=== PATIENT | female | born 1985 | race African-American/Black ===

== ENCOUNTER 2020-12-22 11:57 | Emergency (ER) | payer OTHER, SELFPAY ==
--- NOTE | ~2020-12-22 | XR_ITS ---
EXAMINATION: XR CHEST CLINICAL INFORMATION: Cough COMPARISON: None TECHNIQUE: AP portable view of the chest was obtained. FINDINGS: No significant abnormality is noted involving the heart, lungs, mediastinum, bony thorax or soft tissues. XR/XR chest 1V IMPRESSION: No acute disease.
[2020-12-22 12:07] VITALS: BP 150/92; PULSE 74; RESP 18; TEMP 36.9; O2SAT 100; BMI 39.6
--- NOTE | 2020-12-22 12:30 | ED_ITS ---
HPI - URI/Sore Throat General Chief Complaint: Upper Respiratory Symptoms Stated Complaint: lt ear pain Time Seen by Provider: 12/22/20 12:14 Source: patient Mode of arrival: ambulatory Limitations: no limitations History of Present Illness HPI Narrative: 35-year-old female who is recently staying in a custodial presents with severe left ear pain for the last 3 days. States the pain is sharp in her left ear, no discharge. No fevers. Patient has had a cough for the last 3 days and feels congested in her chest, no sore throat. No sinus pain. Patient tested negative for COVID 2 weeks ago. Not vaccinated for COVID. has a past medical history of GERD and asthma. States patient ran out of albuterol inhaler, was using inhaler 4 times a day. Patient states she did go swimming last week. MD elicited complaint: cough and other (left ear pain) Pertinent past history: asthma Onset (ago): day(s) (3) Consistency: constant Severity: moderate Description of mucous: yellow Able to tolerate fluids by mouth: Yes Exacerbating factors: nothing Relieving factors: nothing Associated symptoms: nasal congestion and cough Treatments prior to arrival: none Related Data Previous Rx's Medication Instructions Recorded albuterol sulfate 90 mcg/actuation 2 puff INHALATION Q6H PRN #8.5 g 12/22/20 aerosol inhaler amoxicillin 875 mg-potassium 1 tab PO BID 10 Days #20 tab 12/22/20 clavulanate 125 mg tablet (Augmentin) ofloxacin 0.3 % ear drops 10 drp OTIC (EARS) DAILY 7 Days 12/22/20 #10 ml prednisolone acetate 1 % eye 1 drp OPHTHALMIC (EYE) BID #10 ml 12/22/20 drops,suspension prednisone 20 mg tablet 40 mg PO DAILY 5 Days #10 tab 12/22/20 Allergies Allergy/AdvReac Type Severity Reaction Status Date / Time No Known Allergies Allergy Verified 12/22/20 12:09 Review of Systems Constitutional: Constitutional: Denies chills, Denies fatigue, Denies fever(s) and Denies headache(s) Eyes: Eyes: Denies blurry vision, Denies diplopia and Denies eye pain ENT: Denies ear discharge, Reports otalgia, Denies facial pain, Denies headache(s), Denies hearing loss, Denies hoarseness, Reports post nasal drip, Denies sinus pain, Denies sinus pressure and Denies sore throat Cardiovascular: Cardiovascular: Denies chest pain and Denies dyspnea Respiratory: Respiratory: Reports chest congestion, Reports cough, Denies dyspnea and Reports wheezing Gastrointestinal: Gastrointestinal: Denies abdominal pain, Denies hematochezia, Denies coffee ground emesis, Denies constipation, Denies nausea a nd Denies vomiting Genitourinary: Genitourinary: Reports no additional female genitourinary complaints Musculoskeletal: Musculoskeletal: Denies back pain, Denies myalgias and Denies muscle weakness Integumentary/Breasts: Skin/Breast: Denies erythema and Denies rash Neurologic: Reports system reviewed and no additional complaints, except as documented and Denies headache(s) Endocrine: Endocrine: Denies fatigue Allergic/Immunologic: Allergic/Immunologic: Reports wheezing PMFSH Past Medical History Medical History (Updated 12/22/20 @ 13:24 by LORAINE Hatfield) Asthma Social History Social History Advance Directives: No Advance Directives Information Provided: Yes Patient : No Physical Exam Vital Signs: Vital Signs: Last Vital Signs Temp 98.5 F 12/22/20 12:07 Pulse 70 12/22/20 12:54 Resp 18 12/22/20 12:07 BP 150/92 H 12/22/20 12:07 Pulse Ox 100 12/22/20 12:07 Body Mass Index 39.6 Const: General: cooperative, no acute distress, well developed, alert and awake Nutritional Appearance: well nourished Orientation/consciousness: patient oriented x3 Limitations: no limitations HENMT: Head: Yes normal to inspection, Yes normocephalic and Yes atraumatic Ears: hearing grossly normal bilaterally, Abnormal EAC present erythema on the left, edema on the left and EAC tenderness (left tragal tenderness), no external ear abnormalities, normal mastoids bilaterally and TM abnormal bulging on the left, dull bilateral and erythematous on the left General nose exam: Normal external nose present Face and sinus: Yes sinuses nontender, Yes face symmetric and No edema Mouth: moist mucous membranes Throat: Yes postnasal drainage Eyes: Conjunctivae: conjunctivae normal Pupils: Equal, round and reactive pupils present EOM: EOMs intact bilaterally Neck: Neck: Yes full ROM, Yes no lymphadenopathy and Yes supple Resp: Effort & Inspection: normal respiratory effort and able to speak in complete sentences Auscultation: wheezes throughout and diminished lung sounds diffuse Cardio: Rate: regular rate Rhythm: regular rhythm Heart sounds: S1 normal heart sound present and S2 normal heart sound present GI: Inspection: Yes normal to inspection Palpation (GI): Soft to palpation, nontender, no guarding and not rigid Percussion: Yes normal to percussion Auscultation: normal bowel sounds Skin: General skin exam: no rashes or lesions noted Neuro: General: patient oriented x3, tone normal and moves all extremities Cranial nerves: Yes Equal, round and reactive pupils present Extrem: General: Yes normal to inspection and Yes full ROM Psych: Appearance: grossly normal Affect: normal affect Attitude: cooperative Thought process: Normal thought process present Course Course Course Narrative: 35-year-old female presents with cough, congestion, left ear pain for the last 3 days. On exam, patient has stable vitals, is afebrile, lungs are diminished and diffusely wheezy. Patient's left external auditory canal is edematous and erythematous patient's left TM is bulging and erythematous. Will test for COVID, give albuterol MDI, regressed prednisone, will treat left ear infection as both an otitis externaand acute otitis media Reevaluation(s) Reevaluation #1: Chest x-ray is unremarkable. After albuterol, patient's lungs are now clear, no wheezes. MDM - URI/Sore Throat Lab Data Labs: Lab Results 12/22/20 Range/Units 13:09 COVID-19 ([facility]) Negative (Negative) COVID-19 Clin Com See Note Discharge Plan Discharge Clinical Impression: Otitis media Qualifiers: Otitis media type: other nonsuppurative Chronicity: acute Laterality: left Recurrence: non-recurrent Qualified Code(s): H65.192 - Other acute nonsuppurative otitis media, left ear Otitis externa Qualifiers: Otitis externa type: swimmer's ear Chronicity: acute Laterality: left Qualified Code(s): H60.332 - Swimmer's ear, left ear Asthma exacerbation Qualifiers: Asthma severity: mild Asthma persistence: unspecified Qualified Code(s): J45.901 - Unspecified asthma with (acute) exacerbation Patient Disposition: Home, Self-Care Instructions: Asthma (ED), Otitis Externa (ED), Ear Infection (ED) Additional Instructions: 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 Please use your albuterol inhaler, 2 puffs every 4 hours for your awake. Please take your prednisone, take a dose today, after today taken prednisone in the morning. Please start your antibiotics for your left ear infection and take it twice a day for 10 days. Please use both ear drops in your left ear, remember we discussed that 1 of the Ear Drops is written for your eyes, but use in your years. Your COVID test was negative today. Please return for worsening shortness of breath, fevers, chest pain, or any new or concerning symptoms. Prescriptions: New ofloxacin 0.3 % drops 10 drp otic (ears) DAILY 7 Days Qty: 10 RF: 0 prednisolone acetate 1 % drops,suspension 1 drp ophthalmic (eye) BID Qty: 10 RF: 0 albuterol sulfate 90 mcg/actuation HFA aerosol inhaler 2 puff inhalation Q6H PRN (Reason: shortness of breath or wheezing) Qty: 8.5 RF: 1 amoxicillin-pot clavulanate [Augmentin] 875-125 mg tablet 1 tab PO BID 10 Days Qty: 20 RF: 0 prednisone 20 mg tablet 40 mg PO DAILY 5 Days Qty: 10 RF: 0
[2020-12-22] MEDS: Albuterol Sulfate 90 MCG 8 GM INHALER 2 PUFF INHALE (12:53)
[2020-12-22 12:54] VITALS: PULSE 70; O2SAT 97
[2020-12-22] MEDS: oxyCODONE HCl Immed Release 5 MG TABLET PO (13:13)
[2020-12-22 13:41] LABS: COVID-19 Test Negative (Negative)
== END 2020-12-22 14:20 | disposition home or self-care (01) ==
PROVIDERS: Physician Assistant; Emergency Provider Emergency Medicine
DX: H65.192 Other acute nonsuppurative otitis media, left ear (principal); H60.332 Swimmer's ear, left ear; J45.901 Unspecified asthma with (acute) exacerbation; Z20.822 Contact with and (suspected) exposure to COVID-19; Z79.899 Other long term (current) drug therapy
CPT/HCPCS: 36415; 71045; 87635; 94640; 99284

== ENCOUNTER 2021-05-19 21:07 | Emergency (ER) | payer OTHER, SELFPAY ==
[2021-05-19 21:14] VITALS: BP 128/76; PULSE 72; RESP 18; TEMP 36.6; O2SAT 98; BMI 40.5
[2021-05-19] MEDS: Ibuprofen 800 MG TABLET PO (22:45)
--- NOTE | 2021-05-19 22:47 | ED.GENADULT ---
HPI - General Adult General Chief complaint: Ear Problems Stated complaint: left ear pain Time Seen by Provider: 05/19/21 22:15 Source: patient Mode of arrival: ambulatory History of Present Illness HPI narrative: 35-year-old female not vaccinated presents to ED for left ear pain and lower back pain radiating down right leg. Patient denies any coughing, fever, chills, chest pain or shortness of breath. Patient states she is not vaccinated against COVID Related Data Previous Rx's Medication Instructions Recorded albuterol sulfate 90 mcg/actuation 2 puff INHALATION Q6H PRN #8.5 g 12/22/20 aerosol inhaler amoxicillin 875 mg-potassium 1 tab PO BID 10 Days #20 tab 12/22/20 clavulanate 125 mg tablet (Augmentin) ofloxacin 0.3 % ear drops 10 drp OTIC (EARS) DAILY 7 Days 12/22/20 #10 ml prednisolone acetate 1 % eye 1 drp OPHTHALMIC (EYE) BID #10 ml 12/22/20 drops,suspension prednisone 20 mg tablet 40 mg PO DAILY 5 Days #10 tab 12/22/20 amoxicillin 875 mg-potassium 1 tab PO Q12H 10 Days #20 tab 05/19/21 clavulanate 125 mg tablet (Augmentin) naproxen 500 mg tablet 500 mg PO BID PRN 10 Days #20 tab 05/19/21 Allergies Allergy/AdvReac Type Severity Reaction Status Date / Time No Known Allergies Allergy Verified 05/19/21 21:14 Review of Systems Review of Systems: left Ear pain. lower back pain Yes all other systems are reviewed and are negative [facility] Past Medical History Medical History (Updated 05/20/21 @ 00:01 by Sean Combs) Asthma Social History Social History Advance Directives: No Advance Directives Information Provided: No Patient : No Physical Exam Vital Signs: Vital Signs: Last Vital Signs Temp 97.8 F 05/19/21 21:14 Pulse 72 05/19/21 21:14 Resp 18 05/19/21 21:14 BP 128/76 05/19/21 21:14 Pulse Ox 98 05/19/21 21:14 BMI result Body Mass Index 40.5 Const: General: cooperative, healthy appearing, comfortable, no acute distress, well developed, alert and awake Orientation/consciousness: patient oriented x3 HENMT: Head: Yes normal to inspection, Yes No palpable skull fracture present, Yes normocephalic, Yes atraumatic and No abrasion Ears: hearing grossly normal bilaterally, external ears normal, EAC's normal, mastoids normal, no periauricular adenopathy and TM abnormal (both) bulging and erythematous Eyes: General: appearance normal, both eyes and all related structures Neck: Neck: Yes normal visual inspection, Yes full ROM, Yes no lymphadenopathy, Yes no meningeal signs, Yes trachea midline, Yes supple, No anterior neck swelling and No tender Chest: Chest palpation & inspection: normal inspection of the chest and normal palpation of entire chest wall Resp: Effort & Inspection: normal respiratory effort and able to speak in complete sentences Auscultation: clear to auscultation bilaterally Cardio: Jugular venous distension: no JVD Heart sounds: S1 normal heart sound present and S2 normal heart sound present GI: Inspection: Yes normal to inspection and No abdominal wall ecchymosis Palpation (GI): Soft to palpation, not firm, nontender, no guarding and not rigid : General: No CVA tenderness and Yes no CVA tenderness Back/Spine/Pelvis: Back: no CVA tenderness, No CVA tenderness and No back tenderness Skin: General skin exam: no rashes or lesions noted and elasticity normal Neuro: General: patient oriented x3, gait normal, no meningeal signs and CN's II-XI intact bilaterally Cranial nerves: Yes CN's II-XII intact bilaterally Extrem: General: Yes normal to inspection and Yes full ROM Psych: Appearance: grossly normal, well kempt and not disheveled Course Course Course Narrative: History physical exam indicate ear infection but will test for COVID. Reevaluation(s) Reevaluation #1: COVID test negative. Patient discharged with antibiotic. Back pain due to sciatica. Medical Decision Making Lab Data Labs: Lab Results 05/19/21 Range/Units 22:37 COVID-19 ([facility]) Negative (Negative) COVID-19 Clin Com See Note Discharge Plan Discharge Clinical Impression: Otitis media, Sciatica Patient Disposition: Home, Self-Care Instructions: Sciatica (ED), Ear Infection (ED) Additional Instructions: Youre COVID swab came back negative. He will be discharged with antibiotics for infection. Since you are not vaccinated recommend retesting in 5 days if he starts developing other COVID like symptoms or do not feel better. Return to the ED for any chest pain, shortness of breath, worsening ear pain, diarrhea, worsening back pain, fever, chills, urinary/bowel incontinence, dysuria, hematuria, nausea, vomiting, abdominal pain, severe back pain, vaginal discharge, vaginal bleeding, or any other concerning symptoms. Prescriptions: New amoxicillin-pot clavulanate [Augmentin] 875-125 mg tablet 1 tab PO Q12H 10 Days Qty: 20 RF: 0 naproxen 500 mg tablet 500 mg PO BID PRN (Reason: pain) 10 Days Qty: 20 RF: 0 No Action ofloxacin 0.3 % drops 10 drp otic (ears) DAILY 7 Days Qty: 10 RF: 0 prednisolone acetate 1 % drops,suspension 1 drp ophthalmic (eye) BID Qty: 10 RF: 0 albuterol sulfate 90 mcg/actuation HFA aerosol inhaler 2 puff inhalation Q6H PRN (Reason: shortness of breath or wheezing) Qty: 8.5 RF: 1 amoxicillin-pot clavulanate [Augmentin] 875-125 mg tablet 1 tab PO BID 10 Days Qty: 20 RF: 0 prednisone 20 mg tablet 40 mg PO DAILY 5 Days Qty: 10 RF: 0 Stand Alone Forms: Work/School Release Interventions: ED Discharge Assessment Last Done: 05/19/21 23:17 Discharge Date/Time: 05/19/21 23:18 Print Language: [place]
[2021-05-19 22:59] LABS: COVID-19 Test Negative (Negative)
== END 2021-05-19 23:18 | disposition home or self-care (01) ==
PROVIDERS: Physician Assistant; Emergency Provider Emergency Medicine Emergency Medical Services
DX: H66.92 Otitis media, unspecified, left ear (principal); M54.41 Lumbago with sciatica, right side; H92.02 Otalgia, left ear; Z20.822 Contact with and (suspected) exposure to COVID-19
CPT/HCPCS: 87635; 99283; 99284

== ENCOUNTER 2021-09-06 14:03 | Emergency (ER) | payer OTHER, SELFPAY ==
[2021-09-06 15:15] VITALS: BP 122/75; PULSE 76; RESP 16; TEMP 36.1; O2SAT 96; BMI 39.9
[2021-09-06] MEDS: Ondansetron ODT 4 MG TAB.RAPDIS TRANSLINGU (15:25)
[2021-09-06 15:53] LABS: Influenza A Positive (Negative); Influenza B2 Negative (Negative)
[2021-09-06 15:54] LABS: COVID-19 Test Negative (Negative); IDNOW Serial# 55D5AD1C
--- NOTE | 2021-09-07 01:00 | PC.NURSE ---
pt was outside by her car dealing with a police issue. pt told a fellow pt waiting to be seen that when her name was called she was to call her back into to ed. this did not happen. pt is waiting in the waiting room.
[2021-09-07 01:17] VITALS: BP 134/75; PULSE 72; RESP 15; TEMP 36.1; O2SAT 98
[2021-09-07 02:00] VITALS: BP 124/65; PULSE 58; RESP 16; TEMP 36.7; O2SAT 97
--- NOTE | 2021-09-07 03:27 | ED.URI ---
HPI - URI/Sore Throat General Chief Complaint: Upper Respiratory Symptoms Stated Complaint: vomiting Time Seen by Provider: 09/07/21 03:27 Source: patient Mode of arrival: ambulatory History of Present Illness HPI Narrative: 36-year-old female with history of asthma presents with 4-5 days of runny nose, diarrhea, vomiting and patient states that he is having cough, but otherwise no urinary symptoms. Related Data Previous Rx's Medication Instructions Recorded albuterol sulfate 90 mcg/actuation 2 puff INHALATION Q6H PRN #8.5 g 12/22/20 aerosol inhaler amoxicillin 875 mg-potassium 1 tab PO BID 10 Days #20 tab 12/22/20 clavulanate 125 mg tablet (Augmentin) ofloxacin 0.3 % ear drops 10 drp OTIC (EARS) DAILY 7 Days 12/22/20 #10 ml prednisolone acetate 1 % eye 1 drp OPHTHALMIC (EYE) BID #10 ml 12/22/20 drops,suspension prednisone 20 mg tablet 40 mg PO DAILY 5 Days #10 tab 12/22/20 amoxicillin 875 mg-potassium 1 tab PO Q12H 10 Days #20 tab 05/19/21 clavulanate 125 mg tablet (Augmentin) naproxen 500 mg tablet 500 mg PO BID PRN 10 Days #20 tab 05/19/21 Allergies Allergy/AdvReac Type Severity Reaction Status Date / Time mushroom Allergy Angioedema Verified 09/06/21 15:14 Seasonal Allergies Allergy Itchy Eyes Verified 09/06/21 15:14 Review of Systems Review of Systems: Pertinent positives and negatives as stated in HPI 10 point review of systems is otherwise negative. [facility] Past Medical History Source: nursing notes reviewed Medical History Asthma Social History Social History Alcohol intake: never Patient Tobacco Use Status: Never used Tobacco Use of substances other than those prescribed or required for medical reasons: No Advance Directives: No Advance Directives Information Provided: No Physical Exam Vital Signs: Vital Signs: Last Vital Signs Temp 98.1 F 09/07/21 04:00 Pulse 58 09/07/21 04:00 Resp 16 09/07/21 04:00 BP 124/65 09/07/21 04:00 Pulse Ox 97 09/07/21 04:00 BMI result Body Mass Index 39.9 VITAL SIGNS: Reviewed. GENERAL: Well developed, well nourished, in no acute distress. HEAD: Normocephalic/atraumatic EYES: PERRLA, EOMI EARS: Ext canals without abnormality, TMs non-bulging and non-erythematous NOSE: Bilateral nasal congestion OROPHARYNX: no oral lesions noted, posterior pharynx clear and non-erythematous without noted tonsillar enlargement/erythema/exudates NECK: Supple, no adenopathy LUNGS: Normal breath sounds, minimal expiratory wheeze, no tachypnea. SpO2<97> CARDIOVASCULAR: Regular rate and rhythm without noted murmurs ABDOMEN: Soft, non-tender, non-distended with bowel sounds. NEUROLOGIC: Alert and oriented x 4. Strength and sensation to light touch were grossly intact x 4. Course Course Course Narrative: 36-year-old female with history and clinical presentation consistent with viral syndrome and on review of all investigations noted to be influenza A positive. Patient also feels like she is dehydrated so patient received 1 L of IV fluids as well as additional Zofran for nausea and otherwise treated with Tylenol and ibuprofen. On re-evaluation patient is resting comfortably, but otherwise feeling much better and was discharged home in stable condition. MDM - URI/Sore Throat Lab Data Labs: Lab Results 09/06/21 09/06/21 Range/Units 15:31 15:31 COVID-19 ([facility]) Negative (Negative) COVID-19 Clin Com See Note Influenza Type A ([facility]) Positive A (Negative) Influenza Type B ([facility]) Negative (Negative) Influenza A & B Note See Note Discharge Plan Discharge Clinical Impression: Viral syndrome, Influenza A Patient Disposition: Home, Self-Care Instructions: Viral Syndrome (ED), Influenza (ED) Additional Instructions: 1. Resume all home medications as prescribed. 2. Recommend [id number] Tylenol/ibuprofen as needed for body aches, headaches, temperatures greater than 100.4. Continue to drink plenty of fluids. 3. Follow-up with your primary care provider in the next 2-3 days for re-evaluation. Return to the ER for worsening symptoms. Prescriptions: No Action ofloxacin 0.3 % drops 10 drp otic (ears) DAILY 7 Days Qty: 10 0RF Rx Instructions: Instill 10 drops into left ear twice a day for 1 week prednisolone acetate 1 % drops,suspension 1 drp ophthalmic (eye) BID Qty: 10 0RF Rx Instructions: Instill 1 drop into left ear twice a day for 1 week albuterol sulfate 90 mcg/actuation HFA aerosol inhaler 2 puff inhalation Q6H PRN (Reason: shortness of breath or wheezing) Qty: 8.5 1RF amoxicillin-pot clavulanate [Augmentin] 875-125 mg tablet 1 tab PO BID 10 Days Qty: 20 0RF prednisone 20 mg tablet 40 mg PO DAILY 5 Days Qty: 10 0RF amoxicillin-pot clavulanate [Augmentin] 875-125 mg tablet 1 tab PO Q12H 10 Days Qty: 20 0RF naproxen 500 mg tablet 500 mg PO BID PRN (Reason: pain) 10 Days Qty: 20 0RF Referrals: Jermaine Foss MD [Primary Care Provider] - Interventions: LWBS Worksheet Last Done: 09/06/21 23:46
[2021-09-07] MEDS: Albuterol Sulfate 90 MCG 8 GM INHALER 4 PUFF INHALE (03:42)
[2021-09-07] MEDS: 0.9 % Sodium Chloride 1,000 ML 999 ML IV (03:42)
[2021-09-07] MEDS: Acetaminophen 325 MG TABLET 975 MG PO (03:43)
[2021-09-07] MEDS: ondansetron HCL 4 MG/2 ML VIAL IVPUSH (03:43)
[2021-09-07] MEDS: Lidocaine HCl Viscous 2 % 15 ML SOLUTION 10 ML MUCOUS MEM (03:44)
[2021-09-07] MEDS: Magnesium Hydrox/Alum Hydrox 30 ML ORAL.SUSP PO (03:44)
[2021-09-07 04:00] VITALS: BP 124/65; PULSE 58; RESP 16; TEMP 36.7; O2SAT 97
== END 2021-09-07 05:42 | disposition home or self-care (01) ==
PROVIDERS: Emergency Medicine; Emergency Provider Student in an Organized Health Care Education/Training Program; PCP Pediatrics
DX: J10.1 Influenza due to other identified influenza virus with other respiratory manifestations (principal); B34.9 Viral infection, unspecified; J45.909 Unspecified asthma, uncomplicated; Z20.822 Contact with and (suspected) exposure to COVID-19
CPT/HCPCS: 87502; 87635; 96361; 96374; 99284; J2405

== ENCOUNTER 2022-01-15 14:37 | Emergency (ER) | payer OTHER, SELFPAY ==
[2022-01-15 15:35] VITALS: BP 144/88; PULSE 84; RESP 18; TEMP 36.2; O2SAT 97; BMI 38.3
--- NOTE | 2022-01-15 18:50 | ED.FEMALEGU ---
HPI - Female Genitourinary General Chief complaint: Urogenital-Female Stated complaint: stomach pain in lower stomach Time Seen by Provider: 01/15/22 20:20 Source: patient Mode of arrival: ambulatory Limitations: no limitations History of Present Illness HPI Narrative: 36-year-old female presents with 3 days of grayish collar malodorous vaginal discharge that smells like semen. She reports dysuria, chills and some abdominal pain. She does not report fevers, abdominal distention, hematuria, nausea, vomiting, vaginal bleeding, trauma or assault. MD elicited complaint: dysuria and vaginal discharge Onset (ago): day(s) (3) Location of symptoms: perineum and vaginal Severity: moderate Severity scale (1-10): 7 Quality of pain: burning and aching Consistency: constant Vaginal discharge: vaginal odor and other (Canseco) Vaginal bleeding: none Urinary symptoms: Dysuria and Foul Smelling Urine Exacerbating factors: urination and bathing Relieving factors: none Associated symptoms: abdominal pain, chills and painful Treatment prior to arrival: OTC vaginal cream Sexual activity: Yes Patient : No Related Data Previous Rx's Medication Instructions Recorded albuterol sulfate 90 mcg/actuation 2 puff inhalation Q6H PRN 12/22/20 aerosol inhaler shortness of breath or wheezing #8.5 grams amoxicillin 875 mg-potassium 1 tab PO BID 10 days #20 tabs 12/22/20 clavulanate 125 mg tablet (Augmentin) ofloxacin 0.3 % ear drops 10 drp otic (ears) DAILY left 12/22/20 otitis externa 7 days #10 mL prednisolone acetate 1 % eye 1 drp ophthalmic (eye) BID #10 mL 12/22/20 drops,suspension prednisone 20 mg tablet 40 mg PO DAILY 5 days #10 tabs 12/22/20 amoxicillin 875 mg-potassium 1 tab PO Q12H 10 days #20 tabs 05/19/21 clavulanate 125 mg tablet (Augmentin) naproxen 500 mg tablet 500 mg PO BID PRN pain 10 days #20 05/19/21 tabs doxycycline monohydrate 100 mg 100 mg PO BID 14 days #28 caps 01/15/22 capsule fluconazole 150 mg tablet 150 mg PO Q3D 2 doses #2 tabs 01/15/22 (Diflucan) metronidazole 500 mg tablet 500 mg PO Q12H 14 days #28 tabs 01/15/22 Allergies Allergy/AdvReac Type Severity Reaction Status Date / Time mushroom Allergy Angioedema Verified 01/15/22 15:35 Seasonal Allergies Allergy Itchy Eyes Verified 01/15/22 15:35 Review of Systems Review of Systems: Constitutional: No Fever, No Chills ENT/Mouth: No Ear Pain, No Hoarseness, No sore throat Eyes: No Eye Pain, No Swelling, No Redness, No Foreign Body Cardiovascular: No Chest Pain, No SOB Respiratory: No Cough, No Dyspnea Gastrointestinal: No Nausea, No Vomiting, No Diarrhea, No abdominal Pain Genitourinary: Positive vaginal discharge, No Dysuria, No Hematuria Musculoskeletal: No joint pain, No Myalgias, No Joint Swelling Skin: No Skin lacerations, No rash Neuro: No Weakness, No Numbness, No Paresthesias, No Loss of Consciousness, No Dizziness, No Headache Psych: No Anxiety/Panic, No Depression Heme/Lymph: no easy bruising, no Lymphadenopathy Endocrine: No Polyuria, No Polydipsia Yes all other systems are reviewed and are negative [facility] Past Medical History Attestation statement: The following information was validated with the patient. Source: old records reviewed Medical History Asthma Social History Social History Alcohol intake: never Patient Tobacco Use Status: Never used Tobacco Advance Directives: No Advance Directives Information Provided: No Patient : No Physical Exam Vital Signs: Vital Signs: Last Vital Signs Temp 98.3 F 01/15/22 19:40 Pulse 76 01/15/22 19:40 Resp 16 01/15/22 19:40 BP 142/81 H 01/15/22 19:40 Pulse Ox 98 01/15/22 19:40 O2 Del Method 01/15/22 19:40 BMI result Body Mass Index 38.3 Appearance: Alert. Oriented X3. No acute distress. Eyes: Pupils equal, round and reactive to light. ENT: Pharynx normal. Neck: Normal inspection. Neck supple. CVS: Normal heart rate and rhythm. Pulses normal. Respiratory: No respiratory distress. Breath sounds normal. Abdomen: Soft and nontender. Skin: Skin warm and dry. Normal skin color. Normal skin turgor. Extremities: No lower extremity edema. Gait well-balanced well coordinated. Neuro: No motor deficit. No sensory deficit. Cranial nerves 2-12 intact. : Speculum Exam - Vagina: normal appearance of the vagina, normal palpation, abnormal vaginal discharge malodorous and canseco, erythematous, no foreign bodies, no lacerations, no lesions, No vaginal bleeding, No tissue present in vagina, swelling and tenderness Speculum Exam - Cervix: normal appearance of the cervix, normal palpation, No Cervical os open, Cervical os closed, Abnormal cervical discharge present and nontender Bimanual exam- vagina & uterus: normal bimanual exam, normal palpation, uterine size normal, normal palpation, No Cervical tenderness present and non-tender Bimanual Exam- Adnexa, other: normal adnexae OB/external & speculum: no foreign bodies, no tissue noted in vagina, Cervical os open and vaginal bleeding Course Course Course Narrative: 36-year-old female presents with copious amounts of malodorous canseco discharge from her vagina for approximately 3 days. Does not report any new sexual contacts, does not believe that she has a sexually transmitted infection. She does have some pelvic pain, dysuria, physical exam indicates erythematous labia minora, from the canseco malodorous discharge from the vagina and cervical os. No foreign bodies or lesions noted. No cervical motion tenderness, no adnexal tenderness. There is tenderness to the vaginal introitus. 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 Will treat for vaginitis and bacterial vaginosis, I did discuss with patient treating for CT NG and she agrees. Patient will follow-up with primary care physician and or medical assistant ob gyn needed patient verbalized understanding of and agrees to plan of care to discharge home. Verbalized understanding of signs and symptoms indicating need for emergent intervention. MDM - Female Genitourinary Differential Diagnosis Differential diagnosis: Likely urinary tract infection, bacterial vaginosis, trichomoniasis, cervicitis, vaginitis and cystitis Medical Records Attestation: I reviewed the patient's medical records. Lab Data Attestation: I reviewed the patient's lab results. Labs: Lab Results 01/15/22 01/15/22 Range/Units 18:45 18:45 Urine Color Yellow Urine Appearance Cloudy Urine pH 5.5 (5.0-9.0) Ur Specific [place] >= 1.030 H (1.005-1.025) Urine Protein Trace (Neg-Trace) mg/dL Urine Glucose (UA) Negative (Negative) mg/dL Urine Ketones Trace (Negative) mg/dL Urine Blood Negative (Negative) Urine Nitrite Negative (Negative) Ur Leukocyte Esterase Negative (Negative) Urine Test NEGATIVE (NEGATIVE) Discharge Plan Discharge Clinical Impression: Bacterial vaginosis, Vaginitis Patient Disposition: Home, Self-Care Instructions: Bacterial Vaginosis (ED), Vaginal Discharge (ED) Additional Instructions: You were evaluated for vaginal discharge. We are treating you with ceftriaxone 500 mg IM injection 1 time dose, doxycycline 100 mg twice a day for the next 14 days, and Flagyl 500 mg twice a day for the next 14 days. This medication is to treat bacterial vaginosis and vaginitis. Your chlamydia and gonorrhea tests are pending. If your tests come back positive, you do not need further treatment. We treated you for these diseases with ceftriaxone, and doxycycline. Please follow-up with primary care physician and or medical assistant ob gyn. Maintain pelvic rest, nothing in the vagina until symptoms resolve and complete your antibiotics. Do not drink alcohol with Flagyl, you will have significant and serious side effects. If you develop a yeast infection please take Diflucan 150 mg 1 tablet then repeat in 3 days. Thank you for choosing this emergency department for evaluation. Please follow-up with primary care physician as needed. Return to the emergency department for any new, concerning, or worsening symptoms. Prescriptions: New doxycycline monohydrate 100 mg capsule 100 mg PO BID 14 Days Qty: 28 0RF metronidazole 500 mg tablet 500 mg PO Q12H 14 Days Qty: 28 0RF fluconazole [Diflucan] 150 mg tablet 150 mg PO Q3D Qty: 2 0RF Rx Instructions: may repeat second dose 72 hrs after first dose if symptoms persist No Action ofloxacin 0.3 % drops 10 drp otic (ears) DAILY 7 Days Qty: 10 0RF Rx Instructions: Instill 10 drops into left ear twice a day for 1 week prednisolone acetate 1 % drops,suspension 1 drp ophthalmic (eye) BID Qty: 10 0RF Rx Instructions: Instill 1 drop into left ear twice a day for 1 week albuterol sulfate 90 mcg/actuation HFA aerosol inhaler 2 puff inhalation Q6H PRN (Reason: shortness of breath or wheezing) Qty: 8.5 1RF amoxicillin-pot clavulanate [Augmentin] 875-125 mg tablet 1 tab PO BID 10 Days Qty: 20 0RF prednisone 20 mg tablet 40 mg PO DAILY 5 Days Qty: 10 0RF amoxicillin-pot clavulanate [Augmentin] 875-125 mg tablet 1 tab PO Q12H 10 Days Qty: 20 0RF naproxen 500 mg tablet 500 mg PO BID PRN (Reason: pain) 10 Days Qty: 20 0RF Interventions: ED Discharge Assessment Last Done: 01/15/22 20:24 Discharge Date/Time: 01/15/22 20:25
[2022-01-15 19:05] LABS: Appearance Urine Cloudy; Color Urine Yellow; Glucose Urine UA Negative (Negative); Leukocyte Esterase Urine Negative (Negative); Nitrite Urine Negative (Negative); PH 5.5 (5.0-9.0); Specific Gravity - Urine >= 1.030 (1.005-1.025); Urine Blood Negative (Negative); Urine Ketones Trace mg/dL (Negative); Urine Protein Trace mg/dL (Neg-Trace)
[2022-01-15 19:07] LABS: Urine Pregnancy NEGATIVE (NEGATIVE)
[2022-01-15 19:08] LABS: UPreg QC Valid YES
[2022-01-15 19:40] VITALS: BP 142/81; PULSE 76; RESP 16; TEMP 36.8; O2SAT 98
[2022-01-15] MEDS: cefTRIAXone sodium 500 MG, Lidocaine HCl 1 % MPF 1 ML IM (20:13)
[2022-01-15] MEDS: metroNIDAZOLE 500 MG TABLET PO (20:13)
[2022-01-16 03:00] LABS: CT PCR NOT DETECTED (Not Detect.); NG PCR NOT DETECTED (Not Detect.)
[2022-01-16 03:17] LABS: CT PCR NOT DETECTED (Not Detect.); NG PCR NOT DETECTED (Not Detect.)
[2022-01-16 13:21] LABS: BV Int Neg Control Negative (Negative); BV Int Pos Control Positive (Positive)
== END 2022-01-15 20:25 | disposition home or self-care (01) ==
PROVIDERS: Nurse Practitioner Family; Emergency Provider Emergency Medicine Emergency Medical Services; PCP Pediatrics
DX: N76.0 Acute vaginitis (principal); R10.2 Pelvic and perineal pain; R30.0 Dysuria; Z79.899 Other long term (current) drug therapy
CPT/HCPCS: 81003; 81025; 87480; 87491; 87510; 87591; 87660; 96372; 99284; J0696